=== PATIENT | female | born 1965 | race Caucasian/White ===

== ENCOUNTER 2016-07-12 23:55 | Emergency (ER) | payer MEDICAID ==
[2016-07-13 02:25] VITALS: BP 123/78
== END 2016-07-13 02:26 | disposition home or self-care (01) ==
LOC: ED 23:55
DX: R10.9 Unspecified abdominal pain (principal); Z90.49 Acquired absence of other specified parts of digestive tract; Z79.899 Other long term (current) drug therapy
CPT/HCPCS: J2270; J2550

== ENCOUNTER 2016-07-17 06:12 | Emergency (ER) | payer MEDICAID ==
[2016-07-17 09:45] VITALS: BP 140/64
== END 2016-07-17 09:45 | disposition home or self-care (01) ==
LOC: ED 06:12
DX: K59.00 Constipation, unspecified (principal)